=== PATIENT | female | born 1930 | race Caucasian/White ===

== ENCOUNTER 2017-05-21 15:53 | Inpatient (IN) | payer MEDICARE, OTHER ==
--- NOTE | 2017-05-21 16:30 | NUR ---
ADMITTED TO NURSING HOME ROOM 1122 AMBULATORY VIA CAR FROM [facility]. DX; ALTERED MENTAL STATUS WITH BEHAVIORAL DISTURBANCES. SHE HAS DEMENTIA, CONFUSION, WANDERING OFF, GETS IRRITABLE AND AGGRESSIVE AT TIMES, AND THREW HER FOOD INTO HALLWAY. SHE HAS BEEN VERY DIFFICULT TO REDIRECT RECENTLY. SHE IS A DNR CODE STATUS. VSS. WILL CONTINUE TO MONITOR.
[2017-05-21] MEDS ORDERED: ATIVAN0.5 MG PO (17:24)
[2017-05-21] MEDS ORDERED: XANAX0.25 MG PO (17:27)
[2017-05-21 20:48] LABS: APPEARANCE CLEAR (CLEAR); BACTERIA FEW /hpf (NONE SEEN); BILIRUBIN NEGATIVE (NEGATIVE); COLOR YELLOW (YELLOW); EPITHELIAL CELLS 0-5 /hpf (0-5); GLUCOSE NEGATIVE (NEGATIVE); KETONE NEGATIVE (NEGATIVE); NITRITE NEGATIVE (NEGATIVE); PROTEIN NEGATIVE (NEGATIVE); RED CELLS - URINE OCC /hpf (0-5); SPECIFIC GRAVITY 1.015 (1.005-1.020); UROBILINOGEN NORMAL (NORMAL); WHITE CELLS - URINE 0-5 /hpf (0-5)
[2017-05-21 20:52] VITALS: BP 100/40
--- NOTE | 2017-05-21 23:08 | NUR ---
RECEIVED IN PATIENT ROOM. RESTING IN BED WITH EYES OPEN. CALM AND COOPERATIVE WITH CARE AND ASSESSMENT. NO SIGNS OF AGGRESSION. ENCOURAGE TO EXPRESS NEEDS. REDIRECT AND REORIENT NEEDED. RESTING IN BED WITH EYES CLOSED AT THIS TIME. CONTINUE PLAN OF CARE.
--- NOTE | 2017-05-22 00:15 | NUR ---
PATIENT IN ROOM. VERY RESTLESS. INCREASING ANXIETY. ATTEMPTS FROM BED WITHOUT ASSISTNCE CONSTANTY. UNABLE TO REDIRECT AND REORIENT. TRANSFERED TO RECLINER IN SILVE[place]RE FOR SAFETY. ONE ON ONE CARE GIVEN. PRN ATIVAN 0.5 MG PO GIVEN.
[2017-05-22 06:47] LABS: ALBUMIN 2.5 g/dL (3.4-5.0); ALKALINE PHOSPHATASE 114 U/L (46-116); ALT (SGPT) 20 U/L (10-68); BILIRUBIN - TOTAL 0.14 mg/dL (0.2-1.3); CALC OSMOLALITY 280 mosm/kg (275-300); CALCIUM 8.6 mg/dL (8.5-10.1); CHLORIDE - SERUM 106 mmol/L (98-107); CREATININE - SERUM 0.6 mg/dL (0.6-1.3); GLUCOSE 99 mg/dL (74-106); POTASSIUM - SERUM 3.7 mmol/L (3.5-5.1); PROTEIN - SERUM 6.4 g/dL (6.4-8.2); SODIUM 140 mmol/L (136-145); THYROID STIMULATING HORMONE 1.18 uIU/mL (0.36-3.74); UREA NITROGEN 18 mg/dL (7-18); eGFR NON AFRICAN AMERICAN > 90 mL/min (90-120)
[2017-05-22 07:12] LABS: BASOPHILS 0.3 % (0-2); EOSINOPHILS 2.3 % (0-7); IMMATURE GRANULOCYTES 0.3 % (0-5); LYMPHOCYTES 15.9 % (15-50); MCHC 27.7 g/dL (31.0-37.0); MCV 61.7 fL (80.0-100.0); MEAN PLATELET VOLUME 8.6 fL (7.4-10.4); MONOCYTES 13.1 % (2-11); NEUTROPHILS 68.1 % (40-80); PLATELET COUNT 184 10x3/uL (130-400); RBC 3.16 10x6/uL (4.00-5.40); WBC 3.9 10x3/uL (4.8-10.8)
[2017-05-22 07:20] LABS: HEMATOCRIT 19.5 % (36.0-48.0); HEMOGLOBIN 5.4 g/dL (12-16); MCH 17.1 pg (26.0-34.0)
--- NOTE | 2017-05-22 07:24 | NUR ---
LAB CALLED FOR CRITICAL HEMOGLOBIN LEVEL 5.4, HCT 19.5. CALLED DR. BROWN, HE ORDERED GUIAC X2, FERRITIN LEVEL, RETICULAR COUNT, AND TIBC.
[2017-05-22 08:04] LABS: % SATURATION 3 % (15-55); IRON 17 ug/dl (35-150); TOTAL IRON BIND CAPACITY 428 ug/dl (260-445); UNSAT IRON BIND CAPACITY 411 ug/dl (150-375)
--- NOTE | 2017-05-22 08:25 | NUR ---
PATIENT FIGHTING STAFF, NOT REDIRECTING TO STAY SEATED UNTIL BREAKFAST. SHE SUSTAINED A SKIN TEAR BY KICKING STAFF, RIGHT WRIST HAS SMALL SKIN TEAR. BANDAID APPLIED. PATIENT CONTINUES TO FIGHT AND NOT REDIRECT.
[2017-05-22 09:00] VITALS: BP 91/61
--- NOTE | 2017-05-22 09:58 | NUR ---
B) PATIENT IS VERY CONFUSED, SHE WANTS TO GET UP AND WALK, BUT SHE IS SLOW MOVING AND KEEPS SAYING SHE WANTS TO GO HOME, THEN SHE WILL SAY SHE IS SICK OR SHE HAS TO GO TO THE BATHROOM, SHE DOES NOT RECALL HER , WHERE SHE LIVES, SHE DOES NOT RECALL IF SHE HAS A DAUGHTER OR A SON, SHE HAS POOR SHORT TERM MEMORY RECALL AND DOES NOT LISTEN TO REDIRECTION. I) PROVIDE PRESCRIBED MEDS. R) PATIENT HAS NO MEDS ORDERED EXCEPT PRN'S AT THIS TIME. P) CONTINUE POC.
--- NOTE | 2017-05-22 10:54 | NUR ---
PATIENT IS TRYING TO EXIT FROM THE BUILDING SHE KEEPS SAYING "I NEED TO GO HOME" PATIENT DOESN'T KNOW WHERE HOME IS RIGHT NOW. SHE IS HITTING STAFF IF THEY REDIRECT HER, SHE WAS TOILETED AND DRINKS PROVIDED. PATIENT CONTINUES TO WANT TO LEAVE. ATIVAN 0.5 MG AND HADOL 2 MG IM GIVEN IN LEFT HIP.
[2017-05-22 11:59] VITALS: BMI 17.9
[2017-05-22 20:22] VITALS: BP 122/60
--- NOTE | 2017-05-23 02:12 | NUR ---
B) Patient is alert and oriented to name, restless and confused, constantly stating please help me, hitting staff, does not redirect, I) Administered PRN Haldol 2 mg IM at 00:34 for anxiety, monitored for safety, one on one with staff for safety R) restless and not sleeping, combative with redirection, P) Continue plan of care
[2017-05-23 08:31] VITALS: BP 98/42
[2017-05-23 09:53] LABS: BASOPHILS 0.5 % (0-2); EOSINOPHILS 0.2 % (0-7); HEMATOCRIT 21.4 % (36.0-48.0); IMMATURE GRANULOCYTES 0.2 % (0-5); LYMPHOCYTES 8.4 % (15-50); MCV 60.6 fL (80.0-100.0); MEAN PLATELET VOLUME 8.9 fL (7.4-10.4); MONOCYTES 7.8 % (2-11); NEUTROPHILS 82.9 % (40-80); PLATELET COUNT 218 10x3/uL (130-400); RBC 3.53 10x6/uL (4.00-5.40)
--- NOTE | 2017-05-23 10:10 | NUR ---
B) PATIENT IS VERY CALM TODAY, SHE HAS NOT TRIED TO HIT ANYONE AND SHE IS WALKING WITH STAFF ASSIST. SHE IS LISTENING TO REDIRECTION. I) PROVIDE PRESCRIBED MEDS. R) PATIENT IS COMPLIANT WITH MEDS AND UNIT MILIEU. P) CONTINUE POC.
[2017-05-23 10:38] LABS: WBC 6.6 10x3/uL (4.8-10.8)
--- NOTE | 2017-05-23 12:03 | PSY ---
PATIENT NAME:ALYSE CANNON MEDICAL RECORD: [id number] : 30 LOCATION:[facility] Alex2 ADMISSION DATE: 05/21/17 ACCOUNT: [id number] PSYCHIATRIC EVALUATION DATE OF EVALUATION: 05/22/17 IDENTIFYING DATA: The patient is 86 years old and she was admitted to the hospital on a voluntary basis. CHIEF COMPLAINT: Aggression. HISTORY OF PRESENT ILLNESS: The patient lives in a local assisted living center. She apparently has a history of Alzheimer disease, although she is not taking any cholinesterase inhibitor. She apparently has become increasingly agitated there. She has been leaving the facility and when they tried to redirect her, she becomes agitated, angry, and aggressive. She has been throwing things including food at the staff and other patients there. They feel they cannot control her or handle her problems. The patient herself denies any of this having happened and does not think she lives in an assisted living center. She is clearly impaired very severely. She has required p.r.n. medication twice this morning at this facility because of agitated, threatening, and aggressive behavior. She has no recollection of this. PAST MEDICAL HISTORY: Remarkably clean for this elderly woman who has no significant medical history and the only surgical history she has is an appendectomy and a cholecystectomy. PAST PSYCHIATRIC HISTORY: Significant for a diagnosis of dementia, although I am not sure when or how that was diagnosed and unfortunately, the patient cannot tell me at this time. FAMILY HISTORY: Unknown. ALLERGIES: No known drug allergies. CURRENT MEDICATIONS: Include p.r.n. and scheduled benzodiazepines for her agitated behavior. SOCIAL HISTORY: The patient is and has adult children. She formerly smoked quite heavily and she was never an abuser of drugs or alcohol. She says she has 4 children and many, but no grandchildren. I know she has at least 1 daughter who actually is employed here. 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 MENTAL STATUS EXAMINATION: The patient is awake, alert and oriented to person only. Her mood is flat. Her affect is constricted. Thought processes are circumstantial. Memory, concentration, and abstraction abilities are moderately impaired and she denies any active intent to harm herself or others as well as overt psychotic symptoms. ASSETS: Supportive family members. LIABILITIES: Limited insight. DIAGNOSTIC IMPRESSION: AXIS I: Senile dementia of the Alzheimer's type with behavioral disturbances. AXIS II: None. AXIS III: None. AXIS IV: Moderate stressors. AXIS V: Global assessment of functioning is 25. PLAN: At this time, the patient is admitted to the hospital for a comprehensive medical, psychological, and social evaluation. She will be treated with both mood stabilizing and memory enhancing medications. Her long-term prognosis is guarded. TRANSINT:[id number] Voice Confirmation ID: [id number] DOCUMENT ID: [id number] SAARH CALL MD at 1203 CC: [id number] DICTATION DATE: 05/22/17 1226 LINSEED OIL PRESS TENDER: 05/22/17 1239 ADM IN [place] [id number] [place] [address]
[2017-05-23 12:22] LABS: FOLATE (FOLIC ACID) - SERUM 11.4 ng/mL (>3.0); RAPID PLASMA REAGIN Non Reactive (Non Reactive); VITAMIN D 25 HYDROXY 25.9 ng/mL (30.0-100.0)
--- NOTE | 2017-05-24 02:05 | NUR ---
RECEIVED IN [place]. RESTING IN RECLINER WITH EYES OPEN. CALM AND COOPERATIVE WITH CARE AND ASSESSMENT. ATTEMPTS TO GET UP WITHOUT ASSISTANCE. ALARM SOUNDING. ENCOURAGE TO EXPRESS NEEDS. REDIRECT AND REORIENT NEEDED. CONTINUE PLAN OF CARE.
--- NOTE | 2017-05-24 07:37 | NUR ---
B) PATIENT IS PLEASANT THIS AM, SHE HAS NOT BEEN FIGHTING THIS AM, SHE IS QUIET AND CALM, SHE IS ORIENTED X1 ONLY. SHE AMBULATES WITH ASSISTANCE, SHE IS SLOW. I) PROVIDE PRESCRIBED MEDS. R) PATIENT REMAINS CALM AT THIS TIME. NO COMPLAINTS. P) CONTINUE POC.
--- NOTE | 2017-05-24 10:00 | PN ---
PATIENT:ALYSE CANNON MEDICAL RECORD: [id number] LOCATION:[facility] Alex ADMISSION DATE: 05/21/17 PROGRESS NOTE DATE OF SERVICE: 05/23/2017 SUBJECTIVE: The patient's case was discussed with staff. She has no new complaint. OBJECTIVE: The patient is in good behavioral control with limited insight about her condition. She generally tolerates her medicines well. ASSESSMENT: No change in diagnoses. PLAN: Brief supportive and educational interventions were made. Long Term prognosis is guarded. I am going to start her on a low dose of Namenda for its memory enhancing properties. TRANSINT:[id number] Voice Confirmation ID: [id number] DOCUMENT ID: [id number] SARAH CALL MD at 1000 CC: [id number] DICTATION DATE: 05/23/17 1223 PLISSE MACHINE OPERATOR: 05/23/17 1229 ADM IN [place] [id number] [place] [id number]
--- NOTE | 2017-05-24 15:05 | NUR ---
CALLED DR. SCOTT'S OFFICE FOR CONSULT FROM DR. BROWN, ANSWERING SERVICE STATED TO CALL BACK SATURDAY AFTER 8 AM.
--- NOTE | 2017-05-24 16:02 | NUR ---
UPDATED FAMILY ON PT'S CONDITION AND HER LAB VALUES. DR. BROWN CONTINUES TO MONITOR AND HAS CONSULTED DR. SCOTT. EDUCATED FAMILY ON DISEASE PROCESS AND THE REASON FOR THE REFERRAL. THEY VERBALIZED UNDERSTANDING.
--- NOTE | 2017-05-25 00:25 | NUR ---
B) patient is alert and oriented to self, very confused and restless at times, I) Administered scheduled medications, monitored for safety, R) Medication compliant, resting in the hallway one on one with MHT for safey P) Continue plan of care.
--- NOTE | 2017-05-25 11:00 | PN ---
PATIENT:ALYSE CANNON MEDICAL RECORD: [id number] LOCATION:[facility] Alex ADMISSION DATE: 05/21/17 PROGRESS NOTE DATE OF SERVICE: 05/24/2017 SUBJECTIVE: The patient's case was discussed with staff. She has no new complaint. OBJECTIVE: The patient denies intent to harm herself or others. She tolerates her medicines well. ASSESSMENT: No change in diagnoses. PLAN: Brief supportive and educational interventions were made. The patient is somewhat anemic and is not eating very adequately. Dr. Mims has been consulted to address the anemia. I think her long-term prognosis is guarded. I am going to start her on Megace to assist with appetite stimulation. TRANSINT:[id number] Voice Confirmation ID: [id number] DOCUMENT ID: [id number] SARAH CALL MD at 1100 CC: [id number] DICTATION DATE: 05/24/17 1242 TECHNICAL PLANNER: 05/24/17 1252 ADM IN [place] [id number] [place] [id number]
--- NOTE | 2017-05-25 12:20 | NUR ---
DR. Cale SCOTT HERE ON CONSULT. LABS ORDERED AND DRAWN PRIOR TO DISCHARGE.
--- NOTE | 2017-05-25 14:03 | NUR ---
HAS BEEN CONFUSED AND DISORIENTED THIS SHIFT.IS COMPLIANT WITH MEDS.MEDS CRUSHED AND GIVEN IN APPLESAUCE.WILL CONTINUE WITH PLAN OF CARE,MONITOR FOR CHANGES AND SAFETY.
[2017-05-25] MEDS ORDERED: BENADRYL INJ50 MG/ML IV (14:52)
[2017-05-25] MEDS ORDERED: MEGACE40 MG PO (14:53)
[2017-05-25] MEDS ORDERED: FERREX 150 PLUS1 CAP PO (14:53)
[2017-05-25] MEDS ORDERED: ACETAMINOPHEN325 MG PO (14:53)
[2017-05-25] MEDS ORDERED: FUROSEMIDE10 MG/M1 IV (14:54)
[2017-05-25] MEDS ORDERED: PERPHENAZINE2 MG PO (14:54)
[2017-05-25] MEDS ORDERED: NAMENDA5 MG PO (14:54)
--- NOTE | 2017-05-25 15:45 | NUR ---
PATIENT GOT OUT OF RECLINER UNASSISTED, TURNED TO GRAB CHAIR AND FELL ON SIDE AND FEEL ON BACK OF HEAD. DR. BROWN HERE IN DAYROOM. ICE BAG APPLIED TO BACK OF HEAD.
--- NOTE | 2017-05-25 17:00 | NUR ---
CT OF HEAD ORDERED. SENT VIA WHEELCHAIR TO CT DEPT.
--- NOTE | 2017-05-25 17:45 | NUR ---
PATIENT TAKEN TO [facility] VIA WHEELCHAIR BY EDWIGE LUTZ RN AND CHELSEA JUAREZ RN. WITH PATIENT'S TRAY.
--- NOTE | 2017-05-27 13:37 | PN ---
PATIENT:ALYSE CANNON MEDICAL RECORD: [id number] LOCATION:DANNI Alex ADMISSION DATE: 05/21/17 PROGRESS NOTE DATE OF SERVICE: 05/25/2017 SUBJECTIVE: The patient's case was discussed with staff. She has no new complaint. OBJECTIVE: The patient denies intent to harm herself or others. She generally tolerates her medicines well. Eye contact is fair. ASSESSMENT: No change in diagnoses. PLAN: The patient was significantly agitated last night. She did require p.r.n. Haldol and Ativan. I am going to start her on a low dose of Trilafon to assist with her thought disorganization. Her long-term prognosis is guarded. She will be observed for clinical changes associated with the use of the medication. TRANSINT:[id number] Voice Confirmation ID: [id number] DOCUMENT ID: [id number] SARAH CALL MD at 1337 CC: [id number] DICTATION DATE: 05/25/17 1110 DIRECTOR CHEMISTRY: 05/25/17 1123 DIS IN 05/25/17 [facility] [address] [place] [address]
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
== END 2017-05-25 17:50 | disposition short-term general hospital (02) | DRG 57 ==
LOC: D.REHAB 15:53 → D.PSYCH 16:14
PROVIDERS: Family Medicine; ADMIT Psychiatry & Neurology Psychiatry
DX: G30.1 Alzheimer's disease with late onset (principal); F02.81 Dementia in other diseases classified elsewhere, unspecified severity, with behavioral disturbance; Z74.09 Other reduced mobility; F41.9 Anxiety disorder, unspecified; E88.09 Other disorders of plasma-protein metabolism, not elsewhere classified; M81.0 Age-related osteoporosis without current pathological fracture; D64.9 Anemia, unspecified; W19.XXXA Unspecified fall, initial encounter; S09.90XA Unspecified injury of head, initial encounter; Z87.891 Personal history of nicotine dependence

== ENCOUNTER 2017-05-25 15:27 | Inpatient (IN) | payer MEDICARE, OTHER ==
[~2017-05-25 15:27] MED LIST: ACETAMINOPHEN325 MG PO; ATIVAN0.5 MG PO; BENADRYL INJ50 MG/ML IV; FERREX 150 PLUS1 CAP PO; FUROSEMIDE10 MG/M1 IV; MEGACE40 MG PO; NAMENDA5 MG PO; PERPHENAZINE2 MG PO; XANAX0.25 MG PO
--- NOTE | 2017-05-25 16:40 | NUR ---
RECEIVED REPORT ON PATIENT FROM BRE IN CORRECTION AT THIS TIME.
--- NOTE | 2017-05-25 16:55 | NUR ---
CALLED TO INFORM KATHIE THAT UNABLE TO ACCEPT PATIENT TO UNIT UNTIL CT OF HEAD HAS BEEN COMPLETED FOR FALL THAT OCCURED AT 1545.
[2017-05-25 17:52] VITALS: BP 105/56
--- NOTE | 2017-05-25 17:58 | NUR ---
RECEIVED PATIENT TO ROOM 2107 VIA WHEELCHAIR AT THIS TIME. ALERT/CONFUSED. LARGE KNOT TO OCCIPUT FROM PREVIOUS FALL. LARGE SWOLLEN AREA TO LEFT SIDE OF NECK. NO IV ACCESS. FAMILY NOW AT BEDSIDE. BLOOD CONSENT SIGNED BY PATIENTS DAUGHTER. CALL LIGHT WITHIN REACH. KARLA MAT PLACED TO PATIENT BED. NO ACUTE DISTRESS.
--- NOTE | 2017-05-25 18:13 | NUR ---
22 GAUGE IV PLACED TO RIGHT FOREARM X 1 STICK. GOOD BLOOD RETURN, EASY FLUSH. TAPED DATED AND SECURED. PATIENT TOLERATED IV PLACEMENT WELL. DAUGHTER AT BEDSIDE. PATIENT REMAINS PLEASANT.
--- NOTE | 2017-05-25 18:29 | NUR ---
PREMEDICATED FOR BLOOD TRANSFUSION AT THIS TIME. NO DISTRESS.
--- NOTE | 2017-05-25 18:54 | NUR ---
IST UNIT PRBC'S INFUSING AT THIS TIME. PATIENT RESTING IN BED WITH EYES CLOSED. FAMILY AT BEDSIDE. NO DISTRESS
--- NOTE | 2017-05-25 19:25 | NUR ---
ULTRASOUND COMPLETED. FAMILY WAS AT BEDSIDE,NOW GOING HOME.
--- NOTE | 2017-05-25 19:52 | NUR ---
PT RESTING IN BED. PRBCS #1 UP AND INFUSING AT 75ML/HR, INCREASED TO 100ML/HR AT THIS TIME. INFUSING TO RIGHT HAND. PT LETHARGIC. WILL ROUSE TO STIMULI. VS BEING MONITORED AND STABLE. SEE ASSESSMENT. CPOC.
--- NOTE | 2017-05-25 20:11 | NUR ---
FAUSTINO BED ALARM AND BUILT IN BED ALARM BOTH ACTIVATED.
[2017-05-25 22:02] VITALS: BP 111/55
--- NOTE | 2017-05-25 22:31 | NUR ---
PT VERY CONFUSED AND IMPULSIVE. TRYING TO GET OUT OF BED. WAS ABLE TO GET HER TO TAKE HER BEDTIME MEDS, BUT NONE OF THESE MEDS WILL HELP HER SETTLE DOWN AND BE LESS CONFUSED. KARLA MAT AND BED ALARM BOTH ACTIVATED. PRBC #1 IS ALMOST COMPLETED. CLOSE SUPERVISION.
--- NOTE | 2017-05-25 23:46 | NUR ---
1ST UNIT OF PRBCS COMPLETED AT 2205. ADMINISTERED LASIX 20MG SIVP/BENADRYL 25MSIVP AND TYLLENOL BY MOUTH. STARTED 2ND UNIT OF PRBCS AT 2340. VS EVERY 15MINUTES. CPOC.
[2017-05-26] VITALS: BP 121/61
--- NOTE | 2017-05-26 00:14 | NUR ---
PT CONFUSED, LEGS OFF OF BED. REPOSITIONED THE OTHER DIRECTION AND PROPPED PILLOWS BEHIND HER BACK. BACK INTO ROOM A FEW MINUTES LATER AND SHE IS ON HER BACK, TYRING TO GET BACK TO OTHER SIDE OF BED. ASKED PT IS SHE NEEDED TO URINATE. RAMBLING COMMENTS. TRANSFERRED PT FROM BED TO BSC AND SHE VOIDED. BACK TO BED AND PROPPED UP WITH PILLOWS. 2ND UNIT OF PRBCS INFUSING. CPOC. MAT AND BED ALARM IN PLACE.
[2017-05-26 00:16] VITALS: BP 105/56; BMI 17.0
--- NOTE | 2017-05-26 01:30 | NUR ---
RESTING WITH EYES CLOSED. BLOOD TRANSFUSION CONTINUES. MONITORING VS.
--- NOTE | 2017-05-26 03:36 | NUR ---
2ND UNIT OF PRBCS COMPLETED AT 0200. PT AWAKE/RESTLESS AND PULLING AT IV LINES. SALINE LOCKED IV. PT NOW WET FROM INCONTINENCE. COMPLETE BATH GIVEN. LINENS CHANGED.
[2017-05-26 04:00] VITALS: BP 118/44
[2017-05-26 06:43] LABS: BASOPHILS 0.4 % (0-2); EOSINOPHILS 0.7 % (0-7); HEMATOCRIT 31.1 % (36.0-48.0); HEMOGLOBIN 9.7 g/dL (12-16); IMMATURE GRANULOCYTES 0.2 % (0-5); LYMPHOCYTES 13.1 % (15-50); MCH 20.8 pg (26.0-34.0); MCHC 31.2 g/dL (31.0-37.0); MCV 66.6 fL (80.0-100.0); MEAN PLATELET VOLUME 9.4 fL (7.4-10.4); MONOCYTES 9.6 % (2-11); PLATELET COUNT 201 10x3/uL (130-400); RBC 4.67 10x6/uL (4.00-5.40); RDW 23.8 % (11.5-14.5); WBC 8.3 10x3/uL (4.8-10.8)
[2017-05-26 06:50] LABS: ANION GAP 12.6 mmol/L (8-16); CALCIUM 9.4 mg/dL (8.5-10.1); CARBON DIOXIDE 26.2 mmol/L (21.0-32.0); CREATININE - SERUM 0.9 mg/dL (0.6-1.3); POTASSIUM - SERUM 3.8 mmol/L (3.5-5.1)
--- NOTE | 2017-05-26 07:05 | NUR ---
RECEIVED REPORT. ASSUMED CARE OF PATIENT. PATIENT PULLING AT SHEETS. REPOSITIONED PATIENT FOR COMFORT. EYES CLOSED. RESP EVEN AND UNLABORED. NO DISTRESS. RESP EVEN AND UNLABORED.
[2017-05-26 08:00] VITALS: BP 107/51
--- NOTE | 2017-05-26 11:13 | NUR ---
PATIENT IN BED, EYES OPEN. REMAINS CONFUSED. PATIENTS FAMILY AT BEDSIDE AND HAVE STATED THEY WILL STAY FOR A LITTLE BIT. NO DISTRESS. CALL LIGHT WITHIN REACH.
[2017-05-26 12:00] VITALS: BP 114/15
--- NOTE | 2017-05-26 13:30 | NUR ---
WATER AND SODA PROVIDED TO PATIENT. PATIENT CONFUSED HOW TO SUCK OUT OF A STRAW OR DRINK OUT OF A GLASS. IV FLUIDS D/C'D DUE TO PATIENT PULLING AT LINES AND IV ACCESS.
--- NOTE | 2017-05-26 15:33 | NUR ---
PATIENT WITH EYES CLOSED. EASILY AROUSED. RESP EVEN AND UNLABORED. NO DISTRESS.
--- NOTE | 2017-05-26 15:48 | NUR ---
SPOKE WITH AND INFORMED HIM THAT WAS HERE TO SEE PATIENT AND DUE TO ALL TEST NEGATIVE AND H&H STABLE THAT PATIENT COULD BE DISCHARGED BACK TO PSYCH UNIT. STATED IT WAS FINE TO DISCHARGE PATIENT BACK TO PSYCH UNIT AND CONTINUE ALL CURRENT MEDICATIONS. CALLED AND SPOKE TO BRE ON PSYCH AT 1328 AND INFORMED HER OF THE ORDERS FROM AND STEPHANIE AND SHE STATED SHE THINKS IT WOULD BE A READMIT FOR THEM, SHE IS GOING TO CHECK WITH THE SORORITY SUPERVISOR AND CALL ME BACK. THANKED BRE.
--- NOTE | 2017-05-26 17:55 | NUR ---
CALLED BRE ON [facility] TO LET HER KNOW THAT THE DISCHARGE PAPERWORK IS COMPLETE. MEL STATES SHE IS WAITING FOR ADMISSIONS TO PLACE PATIENT IN HER SYSTEM, SHE WILL CALL WITH PATIENT IS IN THE SYSTEM. THIS APARTMENT MAINTENANCE SUPERVISOR TO CALL PATIENTS DAUGHTER AND LET HER KNOW OF TRANSFER BACK TO [facility].
--- NOTE | 2017-05-26 17:57 | NUR ---
ATTEMPTED TO CALL BOTH DAUGHTERS, CINDI RAO AND BAKARI RAMOS. NO ANSWER FROM EITHER PERSON CALLED.
--- NOTE | 2017-05-26 18:30 | NUR ---
1819 22 GAUGE IV REMOVED FROM RIGHT FOREARM. CATHETER TIP INTACT. NO BLEEDING FROM SITE. 2X2 GAUZE APPLIED AND SECURED WITH TAPE. PATIENT IS DISCHARGING BACK TO [facility]. 1824 PATIENT LEFT UNIT VIA WHEELCHAIR WITH ALL PERSONAL BELONGINGS. PATIENT IN NO DISTRESS. PATIENT DISCHARGED TO 1133. PATIENT UNABLE TO SIGN PAPERWORK ON DISCHARGE.
--- NOTE | 2017-05-26 18:38 | NUR ---
CINDI RETURNED CALL AND INFORMED HER THAT PATIENT HAD BEEN TRANSFERRED TO ROOM 1133 ON [facility]. THANKED THIS SECURITY SYSTEMS ADMINISTRATOR FOR CALLING TO LET HER KNOW.
--- NOTE | 2017-05-28 07:42 | DS ---
PATIENT:ALYSE CANNON :30 MEDICAL RECORD: [id number] DISCHARGE SUMMARY ADMISSION DATE: 05/25/17 DISCHARGE DATE: 05/26/17 DATE OF ADMISSION: 05/25/2017 DATE OF DISCHARGE: 05/26/2017. DISCHARGE DIAGNOSES: 1. Severe anemia. 2. Alzheimer's dementia with behavior problems. 3. Anxiety. 4. Hypoalbuminemia. 5. Osteoporosis. 6. Impaired functional mobility, balance, gait, and endurance. 7. Fall. 8. Anorexia. CONSULTANTS: Dr. Mims. PROCEDURES: Transfusion of 2 units of packed red cells. BRIEF HISTORY AND COURSE IN THE GREY: This is an 86-year-old white female admitted from [facility] for weakness and severe anemia. The patient was initially admitted to [facility] on 05/21/2017 with a diagnosis of Alzheimer's dementia with behavior problems. The patient lives in [facility]. Admission labs on 05/22/2017 in [facility] showed hemoglobin of 5.4, hematocrit 19.5. Repeat CBC on 05/23/2017 showed H&H of 6 and a hemoglobin 21.4. Dr. Mims was consulted. She recommended transfer to the floor for transfusion. Prior to transfer to the floor, the patient got up from her recliner and fell, hitting the back of her head. There was no loss of consciousness. A CT scan was ordered and was negative. The patient received 2 units of packed red cells. Post-procedure, she was confused and restless. She attempted to get out of the bed. It was decided to discharge her back to [facility] for further treatment. The patient was discharged in stable condition. DISCHARGE INSTRUCTIONS: DIET: As tolerated. ACTIVITY: As tolerated. MEDICATIONS: Per discharge reconciliation orders. TRANSINT:[id number] Voice Confirmation ID: [id number] DOCUMENT ID: [id number] DISCHARGE SUMMARY REPORT [id number] ALYSE CANNON FERDINAND MD at 0742 CC: [id number] DICTATION DATE: 05/27/17 1133 APPLICATION DESIGNER: 05/27/17 1417 DIS IN 05/26/17 [place] [address]
== END 2017-05-26 17:28 | disposition short-term general hospital (02) | DRG 812 ==
LOC: D.M2 15:27
PROVIDERS: ADMIT Family Medicine
DX: D50.9 Iron deficiency anemia, unspecified (principal); F02.81 Dementia in other diseases classified elsewhere, unspecified severity, with behavioral disturbance; G30.9 Alzheimer's disease, unspecified; F41.9 Anxiety disorder, unspecified; E88.09 Other disorders of plasma-protein metabolism, not elsewhere classified; R63.0 Anorexia; Z74.09 Other reduced mobility; M81.0 Age-related osteoporosis without current pathological fracture; R22.1 Localized swelling, mass and lump, neck; Z87.891 Personal history of nicotine dependence

== ENCOUNTER 2017-05-26 18:02 | Inpatient (IN) | payer MEDICARE, OTHER ==
[~2017-05-26] VITALS: Ht 152.4 cm; Wt 43.2 kg
--- NOTE | 2017-05-26 18:20 | NUR ---
1809 22 GAUGE IV REMOVED FROM RIGHT FOREARM. PATIENT BEING DISCHARGED TO [facility]. NO BLEEDING FROM SITE. CATHETER TIP INTACT. 2X2 GAUZE APPLIED AND SECURED WITH TAPE. TOLERATED IV REMOVAL WELL. 1824 PATIENT LEFT UNIT VIA WHEELCHAIR. PATIENT DISCHARGED TO ROOM 1133 IN [facility]. PATIENT LEFT UNIT WITH ALL PERSONAL BELONGINGS. PATIENT IN NO DISTRESS UPON LEAVING UNIT. PATIENT UNABLE TO SIGN PAPERWORK
[2017-05-26 19:30] VITALS: BP 97/56
--- NOTE | 2017-05-26 23:32 | NUR ---
RECEIVED IN [place] OUTSIDE OF NURSES STATION. SITTING IN WHEELCHAIR. CONFUSED. CALM AND COOPERATIVE WITH CARE AND ASSESSMENT. NO SIGNS OF AGGRESSION. CINDI (DAUGHTER) CALLED AND TELEPHONE CONSENT TO TREAT RECEIVED. CODE STATUS DISCUSSED. DAUGHTER WANTS PATIENT TO REMAIN A DNR. ENCOURAGE TO EXPRESS NEEDS. REDIRECT AND REORIENT NEEDED. RESTING WITH EYES CLOSED AT THIS TIME. CONTINUE PLAN OF CARE.
[2017-05-27 06:09] VITALS: BP 97/56
[2017-05-27 08:00] VITALS: BP 124/62
--- NOTE | 2017-05-27 08:30 | NUR ---
CALM AND COOPERATIVE WITH ASSESSMENT AND CARE. NO AGGRESSION NOTED. MEDICATIONS GIVEN ORDERED. FALL PRECAUTIONS MAINTAINED. WILL CONTINUE PLAN OF CARE.
[2017-05-27 21:18] VITALS: BP 127/74
--- NOTE | 2017-05-27 23:48 | NUR ---
RECEIVED IN PATIENT ROOM. RESTING IN BED WITH EYES CLOSED. RESPONDS TO VOICE. CALM AND COOPERATIVE WITH CARE AND ASSESSMENT. NO SIGNS OF AGGRESSION. ENCOURAGE TO EXPRESS NEEDS. REDIRECT AND REORIENT NEEDED. RESTING IN BED WTIH EYES CLOSED AT THIS TIME. CONTINUE PLAN OF CARE.
[2017-05-28 05:26] LABS: BASOPHILS 0.3 % (0-2); EOSINOPHILS 3.9 % (0-7); HEMATOCRIT 29.2 % (36.0-48.0); HEMOGLOBIN 8.9 g/dL (12-16); IMMATURE GRANULOCYTES 0.2 % (0-5); LYMPHOCYTES 15.1 % (15-50); MCH 20.4 pg (26.0-34.0); MCHC 30.5 g/dL (31.0-37.0); MEAN PLATELET VOLUME 9.5 fL (7.4-10.4); MONOCYTES 10.4 % (2-11); NEUTROPHILS 70.1 % (40-80); PLATELET COUNT 210 10x3/uL (130-400); RBC 4.36 10x6/uL (4.00-5.40); RDW 24.9 % (11.5-14.5); WBC 6.3 10x3/uL (4.8-10.8)
[2017-05-28 05:53] LABS: CALCIUM 8.9 mg/dL (8.5-10.1); CHLORIDE - SERUM 108 mmol/L (98-107); CREATININE - SERUM 0.7 mg/dL (0.6-1.3); GLUCOSE 85 mg/dL (74-106); UREA NITROGEN 25 mg/dL (7-18); eGFR NON AFRICAN AMERICAN 84 mL/min (90-120)
[2017-05-28 06:01] LABS: CALC OSMOLALITY 285 mosm/kg (275-300); SODIUM 142 mmol/L (136-145)
[2017-05-28 06:15] LABS: POTASSIUM - SERUM 2.4 mmol/L (3.5-5.1)
--- NOTE | 2017-05-28 10:10 | NUR ---
Alert and oriented to name only, self propels in W/C, chair alarm in place. Calm with care. Redirect and reorient as need. Monitor safety. Monitor for any wandering or signs of elpoment. Cooperative with no agitation. Safety maintained.
[2017-05-28 14:15] VITALS: BMI 18.5
--- NOTE | 2017-05-28 14:39 | PSY ---
PATIENT NAME:ALYSE CANNON MEDICAL RECORD: [id number] : 30 LOCATION:DANNI Alex2 ADMISSION DATE: 05/26/17 ACCOUNT: [id number] PSYCHIATRIC EVALUATION DATE OF EVALUATION: 05/27/17 IDENTIFYING DATA: The patient is 86 years old and she is admitted to the hospital on a voluntary basis. CHIEF COMPLAINT: None. HISTORY OF PRESENT ILLNESS: The patient was hospitalized on the behavioral unit because of some confused and agitated behavior associated with the dementing illness. She developed severe anemia and was transferred to the medical floor to receive blood and to be evaluated for the blood loss. There is no obvious explanation for why she is anemic, that is to say she is not actively bleeding somewhere as far as it is known. She was subsequently transferred back here for continued treatment of her cognitive disorder. She is every bit as confused and impaired cognitively as when she left, but she does clearly look and feel more vigorous, obviously that is related to receiving the blood. PAST MEDICAL HISTORY: Past medical history is surprisingly clean for this elderly woman who has no serious medical problems. PAST PSYCHIATRIC HISTORY: Significant for dementia with some behavior problems. FAMILY HISTORY: Unknown. ALLERGIES: No known drug allergies. CURRENT MEDICATIONS: Include Megace, iron, Namenda, and Trilafon. SOCIAL HISTORY: The patient lives in an assisted living center. She has an adult daughter involved with her care. She functioned reasonably well socially and occupationally. She has no history of drug or alcohol abuse. MENTAL STATUS EXAMINATION: The patient is awake, alert, and oriented to person and place. Her mood is flat. Her affect is constricted. Thought processes are circumstantial. Memory, concentration, and abstraction abilities are moderately impaired. She denies any active intent to harm herself or others as well as overt psychotic symptoms. ASSETS: Supportive family members. LIABILITIES: Limited insight. DIAGNOSTIC IMPRESSION: AXIS I: Senile dementia of Alzheimer type with behavioral disturbances. AXIS II: None. AXIS III: Hypoalbuminemia, osteoporosis, anemia, and anorexia. AXIS IV: Moderate stressors. AXIS V: Global assessment of functioning is 30. PLAN: At this time, the patient is admitted to the hospital for comprehensive medical, psychological, and social evaluation. She will be treated with both memory enhancing and mood stabilizing medications. Her long-term prognosis is guarded. TRANSINT:[id number] Voice Confirmation ID: [id number] DOCUMENT ID: [id number] SARAH CALL MD at 1439 CC: [id number] DICTATION DATE: 05/27/17 1349 GYNECOLOGY TEACHER: 05/27/17 1408 ADM IN [place] [id number] [place] [phone]
[2017-05-28 20:39] VITALS: BP 122/56
--- NOTE | 2017-05-29 02:30 | NUR ---
RECEIVED IN BEDROOM. LAYING IN BED WITH EYES CLOSED. RESPONDS TO TOUCH. CALM AND COOPERATIVE WITH CARE AND ASSESSMENTS. NO SIGNS OF AGGRESSION. REDIRECT AND REORIENT NEEDED. RESTING IN BED EYES CLOSED AT THIS TIME. CONTINUE PLAN OF CARE
[2017-05-29 07:22] LABS: CALC OSMOLALITY 290 mosm/kg (275-300); CALCIUM 8.8 mg/dL (8.5-10.1); CARBON DIOXIDE 25.1 mmol/L (21.0-32.0); CHLORIDE - SERUM 111 mmol/L (98-107); CREATININE - SERUM 0.7 mg/dL (0.6-1.3); GLUCOSE 94 mg/dL (74-106); SODIUM 144 mmol/L (136-145); UREA NITROGEN 24 mg/dL (7-18); eGFR NON AFRICAN AMERICAN 84 mL/min (90-120)
[2017-05-29 07:23] LABS: POTASSIUM - SERUM 3.4 mmol/L (3.5-5.1)
--- NOTE | 2017-05-29 10:00 | NUR ---
Received pt. in dining room for b'fast, alert, confused, no aggression or agitation noted at this time. pacs administrator per orders with patient compliance noted. Pt. present for group, participates when cued. No adverse reaction noted to meds. Cont plan of care including meds and group therapy until discharge.
[2017-05-29 10:42] VITALS: Ht 152.4 cm; Wt 43.2 kg
[2017-05-29 10:59] VITALS: BP 110/46
--- NOTE | 2017-05-29 16:41 | PN ---
PATIENT:ALYSE CANNON MEDICAL RECORD: [id number] LOCATION:[facility] ADMISSION DATE: 05/26/17 PROGRESS NOTE DATE OF SERVICE: 05/28/2017 SUBJECTIVE: The patient's case was discussed with staff. She has no new complaint. OBJECTIVE: The patient denies intent to harm herself or others. She tolerates her medicines well. ASSESSMENT: No change in diagnoses. PLAN: The patient will be maintained on her current medications. She does have a critically low potassium and that is going to be evaluated by her printed circuit board preassembler. I anticipate she can be transitioned out of the hospital soon if this level of improvement is maintained. TRANSINT:[id number] Voice Confirmation ID: [id number] DOCUMENT ID: [id number] SARAH CALL MD at 1641 CC: [id number] DICTATION DATE: 05/28/17 1446 CONTRACT TECHNICAL WRITER: 05/28/17 1624 ADM IN [place] [id number] [place] [id number]
--- NOTE | 2017-05-29 18:05 | NUR ---
Sitting in chair in dayroom. Requires frequent redirection not to stand without assistance, very confused.
[2017-05-29 19:54] VITALS: BP 120/50
--- NOTE | 2017-05-30 01:04 | NUR ---
RECEIVED IN HALLWAY OUTSIDE OF NURSES STATION. SITTING IN WHEELCHAIR WITH PEERS BY HER SIDE. SOCIALIZING WITH STAFF. ASSISTED TO TRANSFER TO BED. CALM AND COOPERATIVE WITH CARE AND ASSESSMENT. NO SIGNS OF AGGRESSION. ENCOURAGE TO EXPRESS NEEDS. RESTING IN BED WTIH EYES CLOSED AT THIS TIME. CONTINUE PLAN OF CARE.
[2017-05-30 08:30] VITALS: BP 118/54
--- NOTE | 2017-05-30 11:33 | NUR ---
Received patient in dining room, alert, confused, argumentative at times, occasionally curses with care, unable to swallow meds whole, partial med compliance with the remainder being spit out. No s/s adverse reaction to meds noted. Present for group but only observed. Cont plan of care including meds and group therapy, encouraging increased participation in group and increased med compliance.
[2017-05-30 19:30] VITALS: BP 108/56
--- NOTE | 2017-05-31 01:56 | NUR ---
B) Patient is alert and oriented to self, withdrawn and keeping to herself, I) Administered scheduled medicationscrushed in applesauce, mionitored for safety, R) Medication compliant, medications had to be offered several times to get compliance, P) Continue plan of care.
[2017-05-31 08:30] VITALS: BP 100/58
--- NOTE | 2017-05-31 11:25 | NUR ---
ORIENTED TO PERSON ONLY. PT IS RESTLESS AND ANXIOUS. NO AGGRESSION NOTED. GIVEN POSITIVE REINFORCEMENT FOR GROUP PARTICIPATION. MEDICATIONS GIVEN ORDERED. FALL PRECAUTIONS MAINTAINED. WILL CONTINUE TO MONITOR AND CONTINUE WITH PLAN OF CARE.
--- NOTE | 2017-05-31 12:44 | NUR ---
MADIHA SPOKE WITH PT'S DTR, CINDI, TO DISCUSS DISCHARGE PLANS. [facility]ION HAS DENIED PT. SW GAVE DTR #S FOR PERSONAL CARE HOMES. PT'S DTR VERBALIZED UNDERSTANDING AND STATED SHE WOULD LOOK INTO ALTERNATIVE OPTIONS.
--- NOTE | 2017-05-31 20:46 | NUR ---
NO AGGRESSION NOTED. ORIENTED TO PERSON ONLY. PT REQUIRES FREQUENT REDIRECTION WITH NO EVIDENCE OF RETAINING OR UNDERSTANDING LIMITATIONS. PT IS 1:1 TO PREVENT FALLS. FALL PRECAUTIONS MAINTAINED. MEDICATIONS GIVEN ORDERED. WILL CONTINUE TO MONITOR AND CONTINUE WITH PLAN OF CARE.
--- NOTE | 2017-06-01 05:45 | PN ---
PATIENT:ALYSE CANNON MEDICAL RECORD: [id number] LOCATION:DANNI Lorenz112 ADMISSION DATE: 05/26/17 PROGRESS NOTE DATE OF SERVICE: 05/31/2017 SUBJECTIVE: No new complaint voiced. OBJECTIVE: The patient is eating better. She remains oriented only to person. She is passively cooperative. On exam, mood is euthymic. Affect constricted. Speech is very terse. Content of thought is negative for overt psychosis. Sensorium shows no change. ASSESSMENT: No change in diagnosis. PLAN: 1. Continue current medications. 2. Continue supportive therapy. TRANSINT:[id number] Voice Confirmation ID: [id number] DOCUMENT ID: [id number] PEARL EWING III, MD at 0545 CC: [id number] DICTATION DATE: 05/31/17 1149 EXHIBITION CARVER: 05/31/17 1200 ADM IN [place] [id number] [place] [address]
[2017-06-01 08:00] VITALS: BP 104/45
--- NOTE | 2017-06-01 15:00 | NUR ---
B) PATIENT IS AWAKE AND ALERT, SHE IS CONFUSED, SHE TRIES TO EAT EVERYONE'S FOOD OFF OF THEIR PLATES, SHE IS WANDERING AROUND AND SHE DOES NOT STAY STILL. PATIENT IS ORIENTED TO SELF ONLY. I) PROVIDE PRESCRIBED MEDS. R) PATIENT IS COMPLIANT WITH MEDS, DOES NOT REDIRECT WELL. P) CONTINUE POC.
[2017-06-01 19:30] VITALS: BP 110/68
--- NOTE | 2017-06-02 04:09 | NUR ---
B) Patient is alert and oriented to name, very confused and wanders at times, social with peers, cooperative with care I) Administered scheduled medications, monitored for safety and behaviors, R) Medication compliant, resting quietly in bed now P) Continue plan of care.
[2017-06-02 08:00] VITALS: BP 113/47
[2017-06-02 11:39] LABS: ANION GAP 12.2 mmol/L (8-16); CARBON DIOXIDE 26.6 mmol/L (21.0-32.0); CREATININE - SERUM 0.8 mg/dL (0.6-1.3); POTASSIUM - SERUM 3.8 mmol/L (3.5-5.1)
--- NOTE | 2017-06-02 14:04 | NUR ---
ATIVAN 0.5 MG PO GIVEN FOR ANXIETY/ SPITTING AND KICKING AT STAFF WHEN TRYING TO REDIRECT.
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
--- NOTE | 2017-06-02 19:14 | NUR ---
HAS BEEN VERY CONFUSED AND NONCOMPLIANT TODAY.DID TAKE MEDS BUT TRIES TO EAT OUT OF DIRTY TRAYS AND ARGUMENTIVE.WILL CONTINUE WITH PLAN OF CARE,MONITOR FOR CHANGES AND SAFETY.
[2017-06-02 19:30] VITALS: BP 119/79
--- NOTE | 2017-06-02 20:49 | NUR ---
RECEIVED IN HALLWAY. WALKING WITH STAFF TO BATHROOM. CALM AND COOPERATIVE WITH CARE AND ASSESSMENTS. REDIRECT AND REORIENT NEEDED. NO SIGNS OF AGGRESSION. ENCOURAEG TO EXPRESS NEEDS. RESTING QUIETLY IN A CHAIR WITH PEERS AT HER SIDE. CONTINUE PLAN OF CARE
[2017-06-03 09:41] VITALS: BP 158/83
--- NOTE | 2017-06-03 10:12 | PN ---
PATIENT:ALYSE CANNON MEDICAL RECORD: [id number] LOCATION:[facility] Alex ADMISSION DATE: 05/26/17 PROGRESS NOTE DATE OF SERVICE: 06/02/2017 SUBJECTIVE: No new complaint. OBJECTIVE: The patient remains quite confused. She is passively cooperative with staff. Eating remains somewhat improved. On exam, mood is euthymic. Affect very constricted. Speech is quite terse. Content of thought is unchanged. The patient remains oriented only to person with global memory impairment. ASSESSMENT: No change in diagnosis. PLAN: 1. Maintain current medication. 2. Continue supportive therapy. TRANSINT:[id number] Voice Confirmation ID: [id number] DOCUMENT ID: [id number] PEARL EWING III, MD at 1012 CC: [id number] DICTATION DATE: 06/02/17 1632 ENROLLMENT SERVICES VICE PRESIDENT: 06/02/17 2156 ADM IN [facility] [address] [place] [id number]
--- NOTE | 2017-06-03 13:59 | NUR ---
Nutrition Follow Up: Pt is eating 74% meal avg on a regular puree diet. +BM 06/01/17. Meds noted including Megace. Labs reviewed. Rec continue current diet. RD following.
--- NOTE | 2017-06-03 14:00 | NUR ---
ORIENTED TO PERSON ONLY. NO AGGRESSION NOTED. PT IS WITHDRAWN BUT DOES EXPRESS NEEDS TO STAFF. PT AMBULATES WITH STAFF AND IS GETTING STRONGER. POSITIVE REINFORCEMENT GIVEN ON PT'S IMPROVMENT WITH PARTICIPATION WITH GROUPS. MEDICATIONS GIVEN ORDERED. FALL PRECAUTIONS MAINTAINED. WILL CONTINUE TO MONITOR AND CONTINUE WITH PLAN OF CARE.
--- NOTE | 2017-06-03 14:04 | PN ---
PATIENT:ALYSE CANNON MEDICAL RECORD: [id number] LOCATION:DANNI Alex ADMISSION DATE: 05/26/17 PROGRESS NOTE DATE OF SERVICE: 05/29/2017 SUBJECTIVE: The patient's case was discussed with staff. She has no new complaint. OBJECTIVE: The patient is in good behavioral control with limited insight about her condition. She tolerates her medicines well. ASSESSMENT: No change in diagnoses. PLAN: The patient is severely impaired cognitively. She is definitely in need of 08-cmxo-t-day supervision. I would anticipate that she can be transitioned out of the hospital soon if this level of improvement is maintained. TRANSINT:[id number] Voice Confirmation ID: [id number] DOCUMENT ID: [id number] SARAH CALL MD at 1404 CC: [id number] DICTATION DATE: 05/29/17 1652 COMPENSATION ADVISOR: 05/29/17 1811 ADM IN [facility] [address] [place] [address]
--- NOTE | 2017-06-03 14:04 | PN ---
PATIENT:ALYSE CANNON MEDICAL RECORD: [id number] LOCATION:[facility]ANNI Alex ADMISSION DATE: 05/26/17 PROGRESS NOTE DATE OF SERVICE: 05/30/2017 SUBJECTIVE: The patient's case was discussed with staff. She has no new complaint. OBJECTIVE: The patient is in good behavioral control with limited insight about her condition. She is not eating very well, but she is receiving Namenda to assist with appetite stimulation. ASSESSMENT: No change in diagnoses. PLAN: Supportive and educational interventions were made. Assisted prognosis is guarded. TRANSINT:[id number] Voice Confirmation ID: [id number] DOCUMENT ID: [id number] SARAH CALL MD at 1404 CC: [id number] DICTATION DATE: 05/30/[address] REPORTER: 05/30/17 1519 ADM IN [facility] [address] [place] [address]
[2017-06-03 15:09] LABS: BASOPHILS 0.3 % (0-2); EOSINOPHILS 1.7 % (0-7); HEMATOCRIT 31.6 % (36.0-48.0); HEMOGLOBIN 9.4 g/dL (12-16); IMMATURE GRANULOCYTES 0.3 % (0-5); LYMPHOCYTES 17.4 % (15-50); MCH 21.3 pg (26.0-34.0); MCHC 29.7 g/dL (31.0-37.0); MCV 71.7 fL (80.0-100.0); NEUTROPHILS 71.3 % (40-80); PLATELET COUNT 206 10x3/uL (130-400); RBC 4.41 10x6/uL (4.00-5.40); RDW 30.4 % (11.5-14.5); WBC 7.6 10x3/uL (4.8-10.8)
--- NOTE | 2017-06-03 16:00 | NUR ---
SLAPPING AND KICKING AT STAFF, WILL NOT REDIRECT, GETS UPSET WITH STAFF. HALDOL 2 MG PO GIVEN FOR ANXIETY.
--- NOTE | 2017-06-03 21:16 | NUR ---
RECEIVED IN BEDROOM. RESTING IN BED WITH EYES OPEN. VERY CONFUSED. CALM AND COOPERATIVE WITH CARE AND ASSESSMENTS. NO SIGNS OF AGGRESSION. REDIRECT AND REORIENT NEEDED. RESTING EYES CLOSED AT THIS TIME. CONTINUE PLAN OF CARE
[2017-06-04 06:57] VITALS: BP 126/51
[2017-06-04 08:30] VITALS: BP 126/51
--- NOTE | 2017-06-04 11:46 | NUR ---
Alert, confused, med compliant, no agitation noted, present for group, cooperative, pleasant mood, no aggression, no s/s adverse reaction to medications. Cont POC including meds and group therapy.
--- NOTE | 2017-06-04 14:20 | PN ---
PATIENT:ALYSE CANNON MEDICAL RECORD: [id number] LOCATION:[facility] Alex ADMISSION DATE: 05/26/17 PROGRESS NOTE DATE OF SERVICE: 06/03/2017 SUBJECTIVE: The patient's case was discussed with staff. She has no new complaint. OBJECTIVE: The patient is in good behavioral control with limited insight about her condition. She generally tolerates her medicines well. ASSESSMENT: No change in diagnoses. PLAN: Supportive and educational interventions were made. The patient will be treated with a higher dose of Trilafon secondary to some agitation that she had earlier today. TRANSINT:[id number] Voice Confirmation ID: [id number] DOCUMENT ID: [id number] SARAH CALL MD at 1420 CC: [id number] DICTATION DATE: 06/03/17 1445 CUT AND PRINT MACHINE OPERATOR: 06/03/17 1503 ADM IN [place] [id number] [place] [address]
--- NOTE | 2017-06-04 18:00 | NUR ---
ALERT, RESTLESS, REQUIRES FREQUENT RE-DIRECTION TO STAY SEATED IN CHAIR DUE TO HIGH FALL PROBABILITY, DENIES PAIN, NO S/S DISTRESS. NO AGGRESSION NOTED.
[2017-06-04 20:25] VITALS: BP 120/44
--- NOTE | 2017-06-04 22:22 | NUR ---
RECEIVED IN HALLWAY. RESTING IN A RECLINER WITH EYES CLOSED. RESPONDS TO VOICE. CALM AND COOPERATIVE WITH CARE AND ASSESSMENTS. NO SIGNS OF AGGRESSION. CONFUSED. REDIRECT AND REOEIENT NEEDED. CONTINUES TO REST QUIETLY IN A RECLINER OUTSIDE OF NURSES STATION. CONTINUE PLAN OF CARE
[2017-06-05 10:36] VITALS: BP 114/46
--- NOTE | 2017-06-05 12:53 | NUR ---
B) PATIENT IS VERY CONFUSED SHE DOES NOT COMPREHEND SOME THINGS AND ASKS THE SAME QUESTION OVER AND OVER AND SHE DOMETIMES USES WORD SALAD, PATIENT IS ABLE TO WALK, BUT SHE IS SLOW MOVING AND NEEDS STAFF ASSIST. PATIENT EATS HER FOOD AND THEN SHE WILL GRAB OTHER PATIENT'S FOOD. I) PROVIDE PRESCRIBED MEDS. R) PATIENT IS COMPLIANT WITH MEDS. P) CONTINUE P[OC.
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
[2017-06-05 19:52] VITALS: BP 106/41
--- NOTE | 2017-06-05 22:09 | NUR ---
B) Patient is withdrawn and seclusive. Sits alone in dining room away from peers who are in the day room. Pulls feet up to chin, wrapped in blanklet. Speaks very few words when attempt to draw patient into conversation. Noted to have scabs on back of right hand, several bruises over both arms, swollen right cheek, left wrist Mexiplex 2"x2" bandage over skin tear or abrasion, (unable to visualize), and dry skin. I) Evaluate for current mental status, reorient and redirect as needed, medicate as ordered, encourage to verbalize feelings. R) Oriented to person only, quiet, somewhat resistive to taking HS medications. Attempted to spit out but eventually did agree to take same. P) Continue to monitor per plan of care.
--- NOTE | 2017-06-05 22:25 | NUR ---
B) Remains quiet, withdrawn, kept to self this shift, no interaction noted with peers. No voiced concerns, did admit to feeling tired today. I) Assess mental state, monitor for changes in mood and behavior, promote safety, administer medications as ordered, redirect and reorient as needed. R) Minimal verbal responses, oriented to person only, took HS medications without difficulty. Remains very confused. P) Monitor per plan of care.
[2017-06-06 07:30] VITALS: BP 110/56
--- NOTE | 2017-06-06 13:50 | PN ---
PATIENT:ALYSE CANNON MEDICAL RECORD: [id number] LOCATION:DANNI Alex ADMISSION DATE: 05/26/17 PROGRESS NOTE DATE OF SERVICE: 06/05/2017 SUBJECTIVE: The patient's case was discussed with staff. She has no new complaint. OBJECTIVE: The patient is severely impaired cognitively. She denies that she would seek to harm herself or others. Eye contact is poor. ASSESSMENT: No change in diagnoses. PLAN: Brief supportive and educational interventions were made. Long-term prognosis is guarded. TRANSINT:[id number] Voice Confirmation ID: [id number] DOCUMENT ID: [id number] SARAH CALL MD at 1350 CC: [id number] DICTATION DATE: 06/05/17 1619 CHARHOUSE WORKER: 06/05/17 1649 ADM IN [place] [id number] [place] [address]
[2017-06-06 20:31] VITALS: BP 127/34
[2017-06-07 08:00] VITALS: BP 123/69
--- NOTE | 2017-06-07 08:00 | NUR ---
LATE ENTRY FROM 06/06 SW MET WITH PT'S DTR, BAKARI, TO DISCUSS DISCHARGE PLANNING. PT'S PPW HAS BEEN SENT TO TWO NURSING FACILITIES. PT NEEDS THREE CONSECUTIVE DAYS TO BE CONSIDERED AT [facility]. SW CONTINUES TO WAIT ON [facility] TO MEET ABOUT PT. PT'S DTR EXPRESSED GRATITUDE.
--- NOTE | 2017-06-07 15:21 | NUR ---
ORIENTED TO PERSON ONLY. PT IS RESTLESS BUT DOES REDIRECT. REORIENTED TO CURRENT ENVIRONMENT. NO AGGRESSION NOTED. MEDICATIONS GIVEN ORDERED. FALL PRECAUTIONS MAINTAINED. WILL CONTINUE WITH PLAN OF CARE AND MONITOR.
[2017-06-07 19:30] VITALS: BP 102/59
--- NOTE | 2017-06-07 21:52 | PN ---
PATIENT:ALYSE CANNON MEDICAL RECORD: [id number] LOCATION:DANNI Alex ADMISSION DATE: 05/26/17 PROGRESS NOTE DATE OF SERVICE: 06/07/2017 SUBJECTIVE: No new complaint. OBJECTIVE: The patient continues to be somewhat restless and wandering, but has not required p.r.n. medication. Overall, improved. On exam, mood is euthymic. Affect constricted. Speech is tangential. Content of thought is negative for overt psychosis. Sensorium unchanged. ASSESSMENT: No change in diagnosis. PLAN: 1. Continue all current medications. 2. Continue supportive therapy. TRANSINT:[id number] Voice Confirmation ID: [id number] DOCUMENT ID: [id number] PEARL EWING III, MD at 2152 CC: [id number] DICTATION DATE: 06/07/17 1303 CANVAS BASTER: 06/07/17 1321 ADM IN [place] [address] [place] [id number]
--- NOTE | 2017-06-07 23:49 | NUR ---
RECEIVED IN BEDROOM. KARLA ALARM SOUNDING. OUT OF BED WITHOUT ASSIST. VERY CONFUSED. ASSISTED BACK TO BED. CALM AND COOPERATIVE WITH CARE AND ASSESSMENTS. REDIRECT AND REORIENT NEEDED. RESTING EYES CLOSED AT THIS TIME. CONTINUE PLAN OF CARE
--- NOTE | 2017-06-08 14:23 | NUR ---
ADMINISTERED 0.5MG ATIVAN D/T ANXIETY. TAKING THINGS AWAY FROM OTHER PT'S CONSTANTLY GETTING UP CAN NOT SIT IN ONE SPOT FOR MORE THAN 30 SECONDS VERY RESTLESS.
[2017-06-08 16:04] VITALS: BP 124/60
--- NOTE | 2017-06-08 17:06 | NUR ---
ORIENTED TO SELF ONLY.WANDERS ABOUT UNIT,TRIES TO GET INTO PEERS FOOD AND WATER,DRINKS,ETC.HAS VERY GOOD APPETITE,SNACKS GIVEN.WILL CONTINUE WITH PLAN OF CARE,MONITOR FOR CHANGES AND SAFETY.COMPLIANT WITH MEDS.
[2017-06-08 19:30] VITALS: BP 126/78
--- NOTE | 2017-06-08 21:26 | NUR ---
RECEIVED IN BEDROOM. RESTING IN BNED WITH EYES CLOSED. RESPONDS TO VOICE. CALM AND COOPERATIVE WITH CARE AND ASSESSMENTS. NO SIGNS OF AGGRESSION. REDIRECT AND REORIENT NEEDED. CONTINUES TO REST QUIETLY IN BEDROOM. CONTINUE PLAN OF CARE
--- NOTE | 2017-06-09 03:30 | NUR ---
PATIENT IN BEDROOM. EXITING BED CONTINUOUSLY. KARLA ALARM SOUNDING. TRANSFERED TO RECLINING CHAIR IN HALLWAY FOR SAFETY. ONE ON ONE CARE. INCREASING ANXIETY. PRN ATIVAN 0.5 MG IM GIVEN FOR INCREASING ANXIETY.
--- NOTE | 2017-06-09 05:02 | PN ---
PATIENT:ALYSE CANNON MEDICAL RECORD: [id number] LOCATION:DANNI Alex ADMISSION DATE: 05/26/17 PROGRESS NOTE DATE OF SERVICE: 06/08/2017 SUBJECTIVE: No new complaint. OBJECTIVE: The patient continues to be somewhat restless, but can be redirected. She is tolerating medications well. She did not require p.r.n. over the last 2 days. On exam, mood is for the most part euthymic. Affect is shallow and brittle. Speech tends to be tangential. Content of thought focuses on somatic concerns. Sensorium is unchanged. ASSESSMENT: No change in diagnosis. PLAN: 1. Continue all current medications. 2. Continue supportive therapy. TRANSINT:[id number] Voice Confirmation ID: [id number] DOCUMENT ID: [id number] PEARL EWING III, MD at 0502 CC: [id number] DICTATION DATE: 06/08/17 0947 SANITARY CHEMIST: 06/08/17 1145 ADM IN [place] [id number] [place] [address]
[2017-06-09 08:05] VITALS: BP 129/59
--- NOTE | 2017-06-09 10:02 | NUR ---
UNABLE TO ADMINISTERED 0900 POTASSIUM LIQUID D/T UNAVAILABLE IN [facility], WAITING FOR PHARMACY TO DELIVER.
--- NOTE | 2017-06-09 11:46 | NUR ---
CALLED [facility] IN PHARMACY AND ADVISED THAT WE STILL DO NOT HAVE LIQUID POTASSIUM AND IN NEED OF FOR PT. BHUMI ADVISED THAT IT WILL BE DELIVERED Z[facility].
--- NOTE | 2017-06-09 15:24 | NUR ---
VERY CONFUSED,ORIENTED TO SELF ONLY.APPETITE VERY GOOD,SPOONFED PER STAFF.INCONTINENT OF BOWEL AND BLADDER.WILL CONTINUE WITH PLAN OF CARE,MONITOR FOR CHANGES AND SAFETY.
[2017-06-09 20:30] VITALS: BP 135/55
--- NOTE | 2017-06-09 20:36 | NUR ---
RECEIVED IN HALLWAY. SITTING IN A WHEELCHAIR. VERY CONFUSED. ATTEMPTS TO STAND WITHOUT ASSIST CONSTANTLY. CALM AND COOPERATIVE WITH CARE AND ASSESSMENTS. NO SIGNS OF AGGRESSION. REDIRECT AND REORIENT NEEDED. CONTINUES TO REST QUIETLY AT NURSES STATION. CONTINUE PLAN OF CARE
--- NOTE | 2017-06-09 23:20 | NUR ---
PATIENT IN HALLWAY IN RECLINING CHAIR OUTSIDE OF NURSES STATION. VERY CONFUSED. ATTEMPTING TO STAND WITHOUT ASSIST. BECOMING INCREASINGLY RESISTANT TO REDIRECTION. PRN ATIVAN 0.5 MG IM GIVEN FOR ANXIETY. PRN HALDOL 2 MG IM GIVEN FOR PSYCHOTIC UNSAFE BEHAVIORS.
--- NOTE | 2017-06-10 12:16 | NUR ---
B) PATIENT IS SLEEPY TODAY, BUT SHE DOES TRY TO GET UP AND THEN SITS DOWN, SHE ASKS FOR CANDY OFTEN. SHE IS ORIENTED TO HER NAME ONLY. I) PROVIDE PRESCRIBED MEDS. R) PATIENT IS COMPLIANT WITH MEDS. P) CONTINUE POC.
[2017-06-10 12:18] VITALS: BP 106/70
--- NOTE | 2017-06-10 20:09 | NUR ---
RECEIVED IN HALLWAY. SITTING IN A RECLINING CHAIR OUTSIDE OF NURSES STATION. VERY CONFUSED. ATTEMPTS TO STAND WOTHOUT ASSIST AT TIMES. CALM AND COOPERATIVE WITH CARE AND ASSESSMENTS. NO SIGNS OF AGGRESSION. REDIRECT AND REORIENT NEEDED. CONTINUES TO REST QUIETLY . CONTINUE PLAN OF CAER
[2017-06-10 20:35] VITALS: BP 126/66
--- NOTE | 2017-06-11 10:17 | PN ---
PATIENT:ALYSE CANNON MEDICAL RECORD: [id number] LOCATION:DANNI Alex ADMISSION DATE: 05/26/17 PROGRESS NOTE DATE OF SERVICE: 06/10/2017 SUBJECTIVE: No new complaint. OBJECTIVE: The patient did require p.r.n. of Ativan and Haldol last night. She had been somewhat combative with staff during activities of daily living. PHYSICAL EXAMINATION: On exam today, the patient is calmer, mood is euthymic. Affect is very shallow. Speech is terse. Content of thought negative for overt psychosis. Sensorium is unchanged. ASSESSMENT: No change in diagnosis. PLAN: 1. Maintain current medications. 2. Continue supportive therapy. TRANSINT:[id number] Voice Confirmation ID: [id number] DOCUMENT ID: [id number] PEARL EWING III, MD at 1017 CC: [id number] DICTATION DATE: 06/10/17 1347 BOTTOM SAW OPERATOR: 06/10/17 1408 ADM IN [place] [place] [address]
[2017-06-11 10:32] VITALS: BP 89/69
--- NOTE | 2017-06-11 13:31 | NUR ---
Nutrition Follow Up: Chart reviewed. Pt is eating 69% meal avg on a regular pureed diet. + BM 06/07/17. Labs reviewed. Meds noted including Megace. Rec continue current diet. RD following.
[2017-06-11 20:22] VITALS: BP 121/64
--- NOTE | 2017-06-11 20:36 | NUR ---
RECEIVED IN HALLWAY. SITTING IN A RECLINING CHAIR. VERY CONFUSED. ATTEMPTS TO STAND WITHOUT ASSIST. CALM AND COOPERATIVE WITH CARE AND ASSESSMENTS. NO SIGNS OF AGGRESSION. REDIRECT AND REORIENT NEEDED. RESTING IN RECLINER EYES OPEN. CONTINUE PLAN OF CARE
[2017-06-12 07:05] LABS: CALCIUM 9.6 mg/dL (8.5-10.1); CARBON DIOXIDE 19.4 mmol/L (21.0-32.0); CREATININE - SERUM 1.2 mg/dL (0.6-1.3); POTASSIUM - SERUM 4.4 mmol/L (3.5-5.1)
[2017-06-12 08:00] VITALS: BP 108/78
--- NOTE | 2017-06-12 08:37 | NUR ---
UPDATED FAMILY ON PT'S BEHAVIOR AND MEDICATION CHANGES. REVIEWED ALL LABS AND UPDATE GIVEN BY DR. BROWN AND DR. EWING. VERBALIZED UNDERSTANDING.
--- NOTE | 2017-06-12 09:31 | PN ---
PATIENT:ALYSE CANNON MEDICAL RECORD: [id number] LOCATION:DANNI Alex ADMISSION DATE: 05/26/17 PROGRESS NOTE DATE OF SERVICE: 06/11/2017 SUBJECTIVE: No new complaint noted. OBJECTIVE: The patient has shown improvement in behavior. She has not required p.r.n. medication. Placement is pending either at [facility] or [facility]. PHYSICAL EXAMINATION: On exam, mood is more or less euthymic. Affect is bland. Speech is tangential. Content of thought is negative for overt psychosis. Sensorium unchanged. ASSESSMENT: No change in diagnosis. PLAN: 1. Maintain current medications. 2. Continue supportive therapy. TRANSINT:[id number] Voice Confirmation ID: [id number] DOCUMENT ID: [id number] PERAL EWING III, MD at 0931 CC: [id number] DICTATION DATE: 06/11/17 1203 FORMULATION TECHNICIAN: 06/11/17 1229 ADM IN [id number] [place] [address]
[2017-06-12 20:05] VITALS: BP 152/74
--- NOTE | 2017-06-12 20:27 | NUR ---
RECEIVED IN HALLWAY. RESTING IN A RECLINING CHAIR WITH EYES OPEN. VERY CONFUSED. CALM AND COOPERATIVE WITH CARE AND ASSESSMENTS. NO SIGNS OF AGGRESSION. REDIRECT AND REOREINT NEEDED. CONTINUES TO SIT IN RECLINER. CONTINUE PLAN OF CARE
--- NOTE | 2017-06-13 08:07 | PN ---
PATIENT:ALYSE CANNON MEDICAL RECORD: [id number] LOCATION:[facility] ADMISSION DATE: 05/26/17 PROGRESS NOTE DATE OF SERVICE: 06/12/2017 SUBJECTIVE: No new complaint. OBJECTIVE: The patient did not require p.r.n. medication. She continues to show reasonable behavioral control. On exam, mood is for the most part euthymic. Affect is somewhat shallow and brittle. Speech is tangential. Content of thought is negative for overt psychosis. Sensorium shows no change. ASSESSMENT: No change in diagnosis. PLAN: 1. Continue current medications. 2. Continue supportive therapy. TRANSINT:[id number] Voice Confirmation ID: [id number] DOCUMENT ID: [id number] PEARL EWING III, MD at 0807 CC: [id number] DICTATION DATE: 06/12/17 1147 ECONOMICS ANALYST: 06/12/17 1218 ADM IN [place] [id number] [place] [id number]
--- NOTE | 2017-06-13 08:23 | NUR ---
SW SPOKE WITH PT'S DTR, SOHAIL, TO DISCUSS DISCHARGE PLANNING. PT'S DTR STATED PT CAN GO TO [facility] BECAUSE THEY HAVE ALREADY ACCEPTED HER AND SHE FEELS COMFORTABLE WITH THAT TRANSISTION. SW STATED SHE WOULD BE DISCHARGED TODAY. SHOAIL VOICED UNDERSTANDING OF DISCUSSION.
[2017-06-13] MEDS ORDERED: FERREX 150 PLUS1 CAP PO (10:21)
[2017-06-13] MEDS ORDERED: KLONOPIN0.5 MG PO (10:22)
[2017-06-13] MEDS ORDERED: NAMENDA5 MG PO (10:22)
[2017-06-13] MEDS ORDERED: PERPHENAZINE2 MG PO (10:22)
--- NOTE | 2017-06-13 10:28 | NUR ---
PT IS RESTLESS BUT NO AGGRESSION NOTED. FREQUENT REDIRECTION IS BEING DONE WITH NO EVIDENCE OF RETAINING. MEDICATIONS GIVEN ORDERED. FALL PRECAUTIONS MAINTAINED. WILL CONTINUE TO MONITOR AND CONTINUE WITH PLAN OF CARE.
--- NOTE | 2017-06-13 11:00 | NUR ---
REPORT CALLED TO ADELIA PEREZ, SPOKE TO LEE.
--- NOTE | 2017-06-13 11:56 | NUR ---
FAXED D/C ORDER AND MED REC TO DR. ARROYO.
[2017-06-13 11:59] VITALS: BP 110/60
--- NOTE | 2017-06-13 14:46 | NUR ---
PATIENT ASSISTED TO VAN BY STAFF, PATIENT IS D/C'D OFF OF SENIOR LIVING.
--- NOTE | 2017-06-14 10:07 | PN ---
PATIENT:ALYSE CANNON MEDICAL RECORD: [id number] LOCATION:[facility] ADMISSION DATE: 05/26/17 PROGRESS NOTE DATE OF SERVICE: 06/13/2017 SUBJECTIVE: No new complaint. OBJECTIVE: The patient is stable. Discharge plans are in place. [facility]. On exam, mood is more or less euthymic. Affect remains shallow. Speech is tangential. Content of thought is unchanged. Sensorium unchanged. ASSESSMENT: No change in diagnosis. PLAN: Anticipate discharge later today. TRANSINT:[id number] Voice Confirmation ID: [id number] DOCUMENT ID: [id number] PEARL EWING III, MD at 1007 CC: [id number] DICTATION DATE: 06/13/17 1146 ZIPPER MACHINE OPERATOR: 06/13/17 1201 DIS IN 06/13/17 [facility] [address] [place] [address]
--- NOTE | 2017-06-18 13:05 | PN ---
PATIENT:ALYSE CANNON MEDICAL RECORD: [id number] LOCATION:[facility] ADMISSION DATE: 05/26/17 PROGRESS NOTE DATE OF SERVICE: 06/06/2017 SUBJECTIVE: The patient's case was discussed with staff. She has no new complaint. OBJECTIVE: The patient is in good behavioral control with limited insight about her condition. She generally tolerates her medicines well. ASSESSMENT: No change in diagnoses. PLAN: Brief supportive and educational interventions were made. I anticipate the patient can be discharged soon if this level of improvement is maintained. TRANSINT:[id number] Voice Confirmation ID: [id number] DOCUMENT ID: [id number] SARAH CALL MD at 1305 CC: [id number] DICTATION DATE: 06/06/17 1358 TAKER OUT: 06/06/17 1410 DIS IN 06/13/17 [place] [id number] [place] [address]
--- NOTE | 2017-06-22 10:32 | DS ---
PATIENT:ALYSE CANNON :30 MEDICAL RECORD: [id number] DISCHARGE SUMMARY ADMISSION DATE: 05/26/17 DISCHARGE DATE: 06/13/17 IDENTIFYING DATA: The patient is 86 years old and she is admitted to the hospital on a voluntary basis. The patient had been hospitalized on the behavioral unit because she had been confused and agitated. She had an established diagnosis of a dementing illness and had developed a severe pneumonia and was subsequently transferred to the medical floor for blood transfusion. After the evaluation for the blood loss was determined to be unknown and she was stabilized, she was transferred back to the behavioral unit. She was continued with treatment with both memory enhancing and mood stabilizing medications. She did show improvement in her behaviors, but no real improvement in her underlying cognitive abilities as one would expect. She was subsequently felt to no longer be an acute danger to herself or others and was transferred back to the long-term. DISCHARGE DIAGNOSES: AXIS I: Senile dementia of the Alzheimer's type with behavioral disturbances. AXIS II: None. AXIS III: Hypoalbuminemia, osteoporosis, anemia, and anorexia. AXIS IV: Moderate stressors. AXIS V: Global assessment of functioning is 35. PLAN: At the time of discharge, the patient was not acutely dangerous to herself or others. She was tolerating her medications well. Her long-term prognosis is guarded. TRANSINT:[id number] Voice Confirmation ID: [id number] DOCUMENT ID: [id number] SARAH CALL MD at 1032 CC: [id number] DICTATION DATE: 06/21/17 1234 PHARMACY BENEFITS COORDINATOR: 06/22/17 0205 DIS IN 06/13/17 [place] [id number] [place] [address]
== END 2017-06-13 14:46 | DRG 57 ==
LOC: D.PSYCH 18:02
PROVIDERS: Family Medicine; ADMIT Psychiatry & Neurology Psychiatry
DX: G30.1 Alzheimer's disease with late onset (principal); F02.81 Dementia in other diseases classified elsewhere, unspecified severity, with behavioral disturbance; E88.09 Other disorders of plasma-protein metabolism, not elsewhere classified; R63.0 Anorexia; Z74.09 Other reduced mobility; D64.9 Anemia, unspecified; M81.0 Age-related osteoporosis without current pathological fracture; E87.6 Hypokalemia; F41.9 Anxiety disorder, unspecified; Z91.81 History of falling; Z87.891 Personal history of nicotine dependence